=== PATIENT | male | born 1975 | race Caucasian/White ===

== ENCOUNTER 2017-10-30 17:29 | Emergency (ER) | payer SELFPAY ==
--- NOTE | 2017-10-30 20:14 | UC ---
Ear Complaint HPI - HPI Summary HPI Summary: Yesterday began with left-sided neck pain had bilateral ear pain has some cough - History of Current Complaint Chief Complaint: UCRespiratory Stated Complaint: LEFT NECK/ EAR PAIN Time Seen by Provider: 10/30/17 20:12 Hx Obtained From: Patient Onset/Duration: Sudden Onset, Lasting Days - 1 Severity Initially: Mild Severity Currently: Mild - Allergies/Home Medications Allergies/Adverse Reactions: Allergies Allergy/AdvReac Type Severity Reaction Status Date / Time ginseng Allergy Severe seizure Verified 10/30/17 20:17 tramadol [From Ultram] Allergy Severe seizure Verified 10/30/17 20:17 PMH/Surg Hx/FS Hx/Imm Hx Previously Healthy: Yes GI/ History: Gastroesophageal Reflux - Surgical History Surgery Procedure, Year, and Place: left meniscus repair 2009. gallbladder removed 1980 - Family History Known Family History: Positive: Cardiac Disease, Hypertension, Diabetes, Other - dyslipidemia - Social History Occupation: Employed Full-time Lives: With Family Alcohol Use: Rare Substance Use Type: None Smoking Status (MU): Former Smoker Type: Cigarettes, eCigarettes Amount Used/How Often: 1 ppd Length of Time of Smoking/Using Tobacco: 30 years Have You Smoked in the Last Year: Yes Cessation Counseling: Patient Advised to Stop Review of Systems Constitutional: Negative Skin: Negative Eyes: Negative ENT: Sore Throat, Ear Ache Respiratory: Cough Cardiovascular: Negative Gastrointestinal: Negative Genitourinary: Negative Motor: Negative Neurovascular: Negative Musculoskeletal: Negative Neurological: Negative Psychological: Negative Is Patient Immunocompromised?: No All Other Systems Reviewed And Are Negative: Yes Physical Exam Triage Information Reviewed: Yes Appearance: Well-Appearing, No Pain Distress, Well-Nourished Vital Signs Reviewed: Yes Eye Exam: Normal Eyes: Positive: Conjunctiva Clear ENT Exam: Normal ENT: Positive: Normal ENT inspection, Hearing grossly normal, Pharynx normal, TMs normal, Uvula midline. Negative: Nasal congestion, Nasal drainage, Trismus , Muffled voice, Hoarse voice, Dental tenderness, Sinus tenderness Dental Exam: Normal Neck exam: Normal Neck: Positive: Supple, Nontender, No Lymphadenopathy Respiratory Exam: Normal Respiratory: Positive: Chest non-tender, Lungs clear, Normal breath sounds, No respiratory distress, No accessory muscle use Cardiovascular Exam: Normal Cardiovascular: Positive: RRR, No Murmur, Pulses Normal, Brisk Capillary Refill Musculoskeletal Exam: Normal Musculoskeletal: Positive: Strength Intact, ROM Intact, No Edema Neurological Exam: Normal Neurological: Positive: Alert, Muscle Tone Normal Psychological Exam: Normal Skin Exam: Normal Diagnostics - EKG Cardiac Rate: NL Cardiac Rhythm: Sinus: Normal Ectopy: None ST Segment: Normal Ear Complaint Course/Dx - Course Course Of Treatment: tyleonol, ibuprofen, mucinex D, increase fluids follow with pcp prn - Differential Dx/Diagnosis Provider Diagnoses: URI, Ear ache, elevated BP without dx of hypertension Discharge - Sign-Out/Discharge Documenting (check all that apply): Discharge - Discharge Plan Condition: Stable Disposition: HOME Patient Education Materials: Decongestant/Expectorant (By mouth), Earache (ED) , Cold Symptoms (ED) Referrals: Cecilio Herzog MD [Primary Care Provider] - If Needed - Billing Disposition and Condition Condition: STABLE Disposition: HOME
[2017-10-30 20:24] VITALS: BP 133/95
[2017-10-30] MEDS ORDERED: Albuterol HFA INHALER* 8 gm MDI INH ONE ×2 (20:55→20:56)
== END 2017-10-30 21:22 | disposition home or self-care (01) ==
LOC: UCCORT 17:29
DX: J06.9 Acute upper respiratory infection, unspecified (principal); H92.03 Otalgia, bilateral; R00.1 Bradycardia, unspecified; R03.0 Elevated blood-pressure reading, without diagnosis of hypertension; K21.9 Gastro-esophageal reflux disease without esophagitis; Z88.5 Allergy status to narcotic agent; Z87.891 Personal history of nicotine dependence
CPT/HCPCS: 93005; 99212; A9270-GY; G0463

== ENCOUNTER 2018-01-11 07:28 | Emergency (ER) | payer BC ==
[2018-01-11] MEDS ORDERED: Morphine VIAL* 4 MG/ML VIAL (1 ml vial) IV ONE (07:48)
[2018-01-11] MEDS ORDERED: Ondansetron ODT TAB* 4 MG SL ONE (07:48)
[2018-01-11] MEDS ORDERED: Al Hydrox/Mg Hydrox/Simet LIQ* 30 ML UDC PO ONE (07:51)
[2018-01-11] MEDS ORDERED: Lidocaine 2% VISCOUS* 15 ML UDC PO ONE (07:51)
[2018-01-11 08:30] LABS: ABS Basophils 0.1 10^3/ul (0-0.2); ABS Eosinophils 0.1 10^3/ul (0-0.6); ABS Lymphocytes 1.8 10^3/ul (1.0-4.8); ABS Monocytes 0.7 10^3/ul (0-0.8); ABS Neutrophils 3.5 10^3/ul (1.5-7.7); ABS Nucleated RBC 0 10^3/ul; Eosinophil % 1.3 % (0-6); Hematocrit 44 % (42-52); Hemoglobin 15.2 g/dl (14.0-18.0); Lymphocyte % 29.4 % (25-47); Mean Corpuscular HGB Conc 35 g/dl (31-36); Mean Corpuscular Hemoglobin 31 pg (27-31); Mean Corpuscular Volume 89 fL (80-94); Mean Platelet Volume 7.8 um3 (7.4-10.4); Nucleated Red Blood Cells % 0; Platelet Count 336 10^3/ul (150-450); Red Blood Count 4.92 10^6/ul (4.00-5.40); Red Cell Distribution Width 14 % (10.5-15); White Blood Count 6.2 10^3/ul (3.5-10.8)
[2018-01-11 08:48] LABS: EGFR Non-African American 72.3 (>60)
[2018-01-11 11:24] LABS: Urine Appearance Clear; Urine Blood 1+ (Negative); Urine Color Yellow; Urine Ketones Negative (Negative); Urine Protein Negative (Negative); Urine Specific Gravity 1.016 (1.010-1.030); Urine Urobilinogen Negative (Negative)
[2018-01-11] MEDS ORDERED: Omeprazole CAP* 20 MG PO ONE (11:28)
--- NOTE | 2018-01-11 12:07 | RAD ---
Indication: Hematuria. CT of the abdomen and pelvis was performed without oral or IV contrast administration. Sagittal and coronal reconstructed images were obtained. The lung bases demonstrate dependent changes in the lung bases. Well-circumscribed nodule is noted peripherally of the right lower lobe laterally measuring approximately 0.7 cm further evaluation chest CT is suggested a nonemergent basis. Liver is normal in size. No focal lesions or intrahepatic ductal dilatation is noted. The patient status post cholecystectomy. The spleen is normal in size. The pancreas demonstrates no dictation. The common duct is not the patient status post cholecystectomy. No adrenal masses are noted. The kidneys demonstrates no hydronephrosis. No hydroureter is noted. No retroperitoneal adenopathy is noted. Aorta demonstrates no evidence of atherosclerosis or aneurysmal dilatation. Retroaortic left renal vein is noted. CT of the pelvis demonstrates no retroperitoneal or pelvic lymphadenopathy. Urinary bladder is otherwise unremarkable. The prostate and seminal vesicles are unremarkable. No dilated small bowel are noted. The appendix is visualized. No hernias are noted. Urinary bladder is collapsed. The prostate and seminal vessels are unremarkable. IMPRESSION: THERE IS IS 0.7 CM NODULE IN THE RIGHT LOWER LOBE PERIPHERY WITH DEPENDENT ATELECTASIS CHANGES OF THE LUNG [place]. THIS IS AN INDETERMINATE LESION. CT OF THE CHEST COULD BE PERFORMED ON NONEMERGENT BASIS. NO OBSTRUCTIVE UROPATHY IS NOTED. PATIENT IS STATUS POST CHOLECYSTECTOMY.
[2018-01-11 13:00] VITALS: BP 109/60
--- NOTE | 2018-01-11 14:13 | ED ---
Alberto Valente Jacob, scribed for Surjit Aldana MD on 01/11/18 at 0754 . Abdominal Pain/Male - HPI Summary HPI Summary: Pt is a 42 y/o M w/ c/o epigastric abdominal pain radiating down the abdomen and to the back. Pain started yesterday morning, has been constant, and has progressively worsened. He currently rates pain 7/10. Pt states pain was located on the ride side of his abdomen initially but has since moved to the middle of his abdominal region. Also c/o fatigue and nausea, having only eaten toast yesterday. Nausea is worse after eating. Some pain upon breathing, but denies SOB. Pt states he feels cold, denies fever, loose stools, and blood in stools. Pt took Zofran and Zantac yesterday. Cholecystectomy when he was 6 due to gallstones. Pt does not see PCP regularly. He used to smoke, drinks occasionally currently. He states he occasionally takes Tylenol, ibuprofen, and motrin. - History of Current Complaint Chief Complaint: EDAbdPain Stated Complaint: ABD PAIN/ GEN ILLNESS Time Seen by Provider: 01/11/18 07:37 Hx Obtained From: Patient Onset/Duration: Gradual Onset, Lasting Days - yesterday, Still Present Timing: Constant Severity Currently: Severe Pain Intensity: 7 Pain Scale Used: 0-10 Numeric - 7/10 Location: Epigastric - pain was originally right sided, now described as centrally located Radiates to: Back Aggravating Factor(s): Food - aggravates nausea Associated Signs And Symptoms: Positive: Decreased Appetite, Nausea, Other - POSITIVE: pain with breathing, chills, fatigue NEGATIVE: loose stool, SOB. Negative: Fever, Blood in Stool, Vomiting, Diarrhea - Allergies/Home Medications Allergies/Adverse Reactions: Allergies Allergy/AdvReac Type Severity Reaction Status Date / Time ginseng Allergy Severe seizure Verified 10/30/17 20:17 tramadol [From Ultram] Allergy Severe seizure Verified 10/30/17 20:17 Home Medications: Home Medications Magnesium Oxide [Magnesium] 250 mg PO DAILY PRN 01/11/18 [History Confirmed ] PMH/Surg Hx/FS Hx/Imm Hx Respiratory History: Reports: Hx Asthma - EIA Sensory History: Denies: Hx Legally Blind - Surgical History Surgery Procedure, Year, and Place: left meniscus repair 2009. gallbladder removed 1980 Infectious Disease History: No Infectious Disease History: Denies: Traveled Outside the [place] in Last 30 Days - Family History Known Family History: Positive: Cardiac Disease, Hypertension, Diabetes, Other - dyslipidemia NEGATIVE: aneurysms - Social History Alcohol Use: Occasionally Substance Use Type: Reports: None Smoking Status (MU): Former Smoker Type: Cigarettes, eCigarettes Amount Used/How Often: 1 ppd Length of Time of Smoking/Using Tobacco: 30 years Have You Smoked in the Last Year: Yes Review of Systems Positive: Chills, Fatigue. Negative: Fever Negative: Erythema Negative: Sore Throat Negative: Chest Pain Positive: Other - pain with breathing. Negative: Shortness Of Breath, Cough Positive: Abdominal Pain - epigastric, Nausea, Other - decreased appetite. Negative: Vomiting, Diarrhea Positive: other - NEGATIVE: loose stool, blood in stool. Negative: dysuria, hematuria Negative: Myalgia, Edema Negative: Rash Neurological: Other - NEGATIVE: dizziness All Other Systems Reviewed And Are Negative: Yes Physical Exam - Summary Physical Exam Summary: Constitutional: Well-developed, Well-nourished, Alert. (-) Distressed Skin: Warm, Dry HENT: Normocephalic; Atraumatic Eyes: Conjunctiva normal Neck: Musculoskeletal ROM normal neck. (-) JVD, (-) Stridor, (-) Tracheal deviation Cardio: Rhythm regular, rate normal, Heart sounds normal; Intact distal pulses; The pedal pulses are 2+ and symmetric. Radial pulses are 2+ and symmetric. (-) Murmur Pulmonary/Chest wall: Effort normal. (-) Respiratory distress, (-) Wheezes, (-) Rales Abd: Soft, (+) epigastric and RUQ tenderness, (-) Distension, (-) Guarding, (-) Rebound Musculoskeletal: (-) Edema Lymph: (-) Cervical adenopathy Neuro: Alert, Oriented x3 Psych: Mood and affect Normal Triage Information Reviewed: Yes Vital Signs On Initial Exam: Initial Vitals Temp Pulse Resp BP Pulse Ox 97.6 F 64 18 113/79 97 01/11/18 07:31 01/11/18 07:31 01/11/18 07:31 01/11/18 07:31 01/11/18 07:31 Vital Signs Reviewed: Yes Diagnostics - Vital Signs Vital Signs Temp Pulse Resp BP Pulse Ox 01/11/18 07:31 97.6 F 64 18 113/79 97 - Laboratory Result Diagrams: 01/11/18 08:22 01/11/18 08:22 Lab Statement: Any lab studies that have been ordered have been reviewed, and results considered in the medical decision making process. - CT CT abd/pel CT Interpretation: Positive (See Comments) CT Interpretation Completed By: Radiologist - there is 0.7 CM nodule in the right lower lob periphery with dependent atelectasis changes of the lung [place]. This is an indeterminate lesion. Ct of the chest could be performed on nonemergent basis. No obstrucive uropathy is noted. Patient is status post cholecystectomy. ED physician reviewed this report. - EKG 0850 Cardiac Rate: Bradycardia - rate of 57 BPM EKG Rhythm: Sinus Bradycardia EKG Interpretation: No STEMI Re-Evaluation - Re-Evaluation First Eval Re-Evaluation Time: 10:00 Change: Improved Comment: Abdominal pain has improved, pt notes mild epigastric pain still present. Try a PO fluid challenge. Second Eval Re-Evaluation Time: 11:01 Comment: Pt is able to tolerate PO. Abdominal Pain Fem Course/Dx - Course Assessment/Plan: Pt is a 42 y/o M w/ c/o epigastric abdominal pain, rated 7/10, radiating down the abdomen and to the back. Pain started yesterday morning, has been constant, and has progressively worsened. Pt states pain was located on the ride side of his abdomen initially but has since moved to the middle of his abdominal region. Also c/o fatigue and nausea, having only eaten toast yesterday. Nausea is worse after eating. Some pain upon breathing, but denies SOB. Pt states he feels cold, denies fever, loose stools, and blood in stools. Pt took Zofran and Zantac yesterday. Cholecystectomy when he was 6 due to gallstones. During ED course, Pt given Ondansetron 4 mg, Omeprazole 40 mg PO, 4 mg Morphine IV, Lidocaine 2% Viscous 15 ml PO, Al Hydrox 30 ml PO. Urine culture was sent and UA done. EKG and CT abd/pel were done as well. EKG showed bradycardia, CT normal. Pt tolerated PO, hematuria will require outpatient follow up. I suspect epigastric pain is either gastritis or peptic ulcer. No concern for common bile duct stone based off of labs. Pt was discharged to home w/ a diagnosis of epigastric pain, hematuria, and pulmonary nodule. - Diagnoses Provider Diagnoses: Hematuria, Epigastric pain, Pulmonary nodule Discharge - Sign-Out/Discharge Documenting (check all that apply): Discharge/Admit/Transfer - discharge - Discharge Plan Condition: Stable Disposition: HOME Prescriptions: Omeprazole CAP* [Prilosec CAP* 20 MG] 20 mg PO DAILY #30 cap. traMADol TAB* [Ultram*] 50 mg PO Q6HR PRN #10 tab MDD 4 PRN Reason: Pain Scale 6-10 Patient Education Materials: Hematuria (ED), Pulmonary Nodules (ED), Epigastric Pain (ED) Referrals: Cecilio Herzog MD [Primary Care Provider] - 2 Days [facility] [Outside] - 2 Days Additional Instructions: RETURN TO THE EMERGENCY DEPARTMENT FOR CHANGING OR WORSENING SYMPTOMS The documentation as recorded by the Alberto luna Jacob accurately reflects the service I personally performed and the decisions made by , Surjit Aldana MD.
== END 2018-01-11 13:00 | disposition home or self-care (01) ==
LOC: ED 07:28
DX: R10.13 Epigastric pain (principal); R31.9 Hematuria, unspecified; R91.1 Solitary pulmonary nodule; Z87.891 Personal history of nicotine dependence
CPT/HCPCS: 36415; 74176; 80053; 81003; 81015; 83605; 83690; 85025; 86140; 87086; 93005; 96374; 99283; A9270-GY; J2270